=== PATIENT | male | born 1990 | race Caucasian/White ===

== ENCOUNTER 2024-12-25 15:49 | Emergency (ER) | payer BC, SELFPAY ==
[2024-12-25 15:50] VITALS: BMI 25.0
--- NOTE | 2024-12-25 15:54 | EKG_ITS ---
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
[2024-12-25 16:01] VITALS: BP 154/91; PULSE 69; RESP 18; TEMP 36.6; O2SAT 98
--- NOTE | 2024-12-25 16:02 | XR_ITS ---
Examination AP lateral chest 2 views Technique upright PA lateral chest 2 views Date and time: December 25, 2024, 1615 hours INDICATIONS: Chest pain beginning couple hours ago. FINDINGS: Normal heart size. Lungs are clear. The osseous structures are intact. IMPRESSION: No active disease.
--- NOTE | 2024-12-25 16:03 | EDRME_ITS ---
Rapid Medical Screening Exam COUNTS INCLUDE 234 BEDS AT THE [facility] Arrival date/time: 12/25/24 15:49 34-year-old male with no known medical history presents to the emergency room with a chief complaint of 8 out of 10 sternal chest pain that began this morning. Patient also states he is having bilateral arm tingling and shortness of breath. I have greeted and performed a focused initial assessment of this patient. A comprehensive ED assessment and evaluation of the patient, analysis of all test results, and completion of the medical decision making process will be conducted by additional ED providers. Chief Complaint: Chest Pain Vital signs: Vital Signs Temperature 97.9 F 12/25/24 16:01 Pulse Rate 69 12/25/24 16:01 Respiratory Rate 18 12/25/24 16:01 Blood Pressure 154/91 H 12/25/24 16:01 Pulse Oximetry (%) 98 12/25/24 16:01 Oxygen Delivery Method Room Air 12/25/24 16:01 Vital signs reviewed by provider: Yes
[2024-12-25 16:13] LABS: Basophils # (Auto) 0.0 Thou/mm3 (0.0-0.2); Basophils % (Auto) 0 % (0-2.5); Eosinophils # (Auto) 0.1 Thou/mm3 (0.0-0.5); Eosinophils % (Auto) 1 % (0-10); Hematocrit 43.4 % (41.0-53.0); Hemoglobin 14.7 g/dL (13.5-16.0); Immature Granulocytes Auto 0.02 Thou/mm3 (0.00-0.00); Lymphocytes # (Auto) 2.4 Thou/mm3 (1.0-4.8); Lymphocytes % (Auto) 29 % (10-50); Mean Corpuscular HGB Conc 33.9 g/dl (31.0-37.0); Mean Corpuscular Hemoglobin 30.6 pg (25.0-35.0); Mean Corpuscular Volume 90 fL (80-100); Monocytes # (Auto) 0.8 Thou/mm3 (0.0-0.8); Monocytes % (Auto) 10 % (0-12); Neutrophils # (Auto) 4.8 Thou/mm3 (1.8-7.7); Neutrophils % (Auto) 59 % (37-80); Nucleated Red Blood Cell # 0.00 Thou/mm3 (0.00-0.00); Nucleated Red Blood Cell % 0 /100 WBC (0); Platelet Count 309 Thou/mm3 (140-440); RDW Standard Deviation 39.2 fL (35.1-43.9); Red Blood Count 4.80 Miln/mm3 (4.50-5.90); White Blood Count 8.2 Thou/mm3 (3.8-10.6)
[2024-12-25 16:34] LABS: Alanine Aminotransferase 21 U/L (10-49); Albumin, Serum 4.8 gm/dL (3.5-5.0); Albumin/Globulin Ratio 1.9 (1.2-2.2); Alkaline Phosphatase 49 U/L (46-116); Anion Gap 8 (7-16); Aspartate Amino Transferase 25 U/L (0-34); B-Type Natriuretic Peptide < 20 pg/mL (0-100); BUN/Creatinine Ratio 9 Ratio (12-20); Bilirubin,Total 0.6 mg/dL (0.3-1.2); Blood Urea Nitrogen 11 mg/dL (9-23); Calcium 9.5 mg/dL (8.3-10.6); Calcium (Corrected) 9.5 mg/dL (8.5-10.1); Carbon Dioxide 29.6 mMol/L (20.0-31.0); Chloride 102 mMol/L (98-107); Creatinine (Component) 1.2 mg/dL (0.6-1.3); Estimated Creatinine Clearance 79.0 mL/min (>60); Globulin 2.5 gm/dL (2.3-3.5); Glucose 94 mg/dL (74-106); Osmolality,Calculated 278 (275-295); Potassium 4.3 mMol/L (3.4-5.1); Sodium 140 mMol/L (136-145); Total Protein 7.3 gm/dL (5.7-8.2); Troponin I < 0.020 ng/mL (0.0-0.045); eGFR > 60 See Note
[2024-12-25 16:56] LABS: Collection Type, Urine Clean Catch
[2024-12-25 17:04] LABS: Bilirubin,Urine Negative (Negative); Blood,Urine Negative (Negative); Clarity,Urine Clear (Clear/Hazy); Color,Urine Yellow (Lt Yel-Yel); Glucose, Urine Negative (Negative); Ketones,Urine Negative (Negative); Leukocyte Esterase,Urine Negative (Negative); Nitrite,Urine Negative (Negative); PH,Urine 6.0 (5.0-7.0); Protein,Urine Negative (Neg - Trace); RBC,Urine 3 /hpf (0-3); Specific Gravity,Urine 1.028 (1.001-1.035); Squamous Epithelial Cell,Urine 1 /hpf (0-5); Urobilinogen,Urine Negative mg/dL (0.0-1.0); WBC,Urine 1 /hpf (0-5)
[2024-12-25 17:21] LABS: Amphetamine/Methamp Scrn,U Negative (Negative); Barbiturate Screen,Urine Negative (Negative); Benzodiazepines Screen,Urine Negative (Negative); Benzoylecgonine Screen, Ur Negative (Negative); Fentanyl Screen,Urine Negative (Negative); Opiate Screen,Urine Negative (Negative); THC Screen,Urine Negative (Negative)
--- NOTE | 2024-12-25 17:34 | PD.EDCHEST ---
ED Chest Pain RME/HPI General Chief Complaint: Chest Pain Stated Complaint: CHEST PAIN/HANDS TINGLING SINCE AM; SOB Arrival date/time: 12/25/24 15:49 RME / HPI RME / HPI narrative: 12/25/24 15:49 34-year-old male with no known medical history presents to the emergency room with a chief complaint of 8 out of 10 sternal chest pain that began this morning. Patient also states he is having bilateral arm tingling and shortness of breath. I have greeted and performed a focused initial assessment of this patient. A comprehensive ED assessment and evaluation of the patient, analysis of all test results, and completion of the medical decision making process will be conducted by additional ED providers. DR. 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 Described as aching in sensation located most to substernal area without radiation, rating 8/10 in severity. Accompanied by his neck and upper back feeling tight, bilateral hand numbness, and feeling slightly short of breath. No aggravating or modifying factors reported. Denies any history of similar pain. Denies any recent injury or trauma. Denies fever, chills, sweating. Denies cough. Denies nausea, vomiting, diarrhea, constipation. Related Data Allergies Allergy/AdvReac Type Severity Reaction Status Date / Time No Known Allergies Allergy Verified 12/25/24 15:52 Review of Systems Review of Systems Systems Reviewed: All systems reviewed, normal except as documented Past Medical History Social History SMOKING STATUS: Never smoker ED Exam Narrative Physical exam: GENERAL APPEARANCE: alert and oriented x 4, well-developed, well-nourished, no acute distress HEENT: Normocephalic, atraumatic; pupils equal, round, reactive to light; EOMI; mucous membranes pink, moist; oropharynx clear NECK: Supple LUNGS: CTABL; no wheezes, no rales, no rhonchi HEART: Regular rate, regular rhythm; normal S1, S2; no murmurs ABDOMEN: non distended; normal BS; soft, no tenderness, no guarding, no rebound; no masses, no organomegaly, no hernia BACK: no CVA tenderness EXTREMITIES: atraumatic; no edema NEUROLOGIC: awake; alert and oriented x4; cranial nerves II-XII grossly intact; no focal sensory or motor deficits PSYCHIATRIC: appropriate mood and affect SKIN: warm, dry, normal color; no rashes Course Course Course Narrative: chest xray ordered to help determine etiology of chest pain. Quality Measures none Orders Category Date Time Status EKG (ED ONLY) *Do not use* NOW Care 12/25/24 15:54 Completed EKG (ED Only) Stat Exams 12/25/24 15:54 Draft XR chest 2V Stat Exams 12/25/24 16:02 Completed B-Type Natriuretic Peptide Stat Lab 12/25/24 16:07 Completed CBC Stat Lab 12/25/24 16:07 Completed Comprehensive Metabolic Panel Stat Lab 12/25/24 16:07 Completed Drug Screen,Urine Stat Lab 12/25/24 16:40 Completed Troponin I Stat Lab 12/25/24 16:07 Completed Troponin I Stat Lab 12/25/24 17:46 Ordered Urinalysis Stat Lab 12/25/24 16:40 Completed Vital Signs Vital signs: Vital Signs Temperature 97.9 F 12/25/24 16:01 Pulse Rate 69 12/25/24 16:01 Respiratory Rate 18 12/25/24 16:01 Blood Pressure 154/91 H 12/25/24 16:01 Pulse Oximetry (%) 98 12/25/24 16:01 Oxygen Delivery Method Room Air 12/25/24 16:01 Pulse ox is 98% on room air which is adequate. Chest Pain MDM Narrative MDM Narrative:: Saba Oakes am scribing for and in the presence of Dr. Jauregui. 34 year old male with no stated medical history presents to the ED for evaluation of substernal chest pain beginning 3 hours CUT OUT MARKER. Described as aching in sensation, rating 8/10 in severity. Accompanied by neck and upper back feeling tight, bilateral hand numbness, and feeling slightly short of breath. Denies any known cardiac history or similar history. Denies any recent injury or trauma. EKG today shows no acute ischemia, no STEMI. Labs are unremarkable, initial troponin is negative. Given the chest pain began only 3 hours prior to arrival, a second troponin was ordered. Patient data External records reviewed:: None (Patient has no previous ED visits for review. ) Clinical information provided by:: patient Social determinants that could affect healthcare access:: none Patient has the following chronic illnesses:: None How is presenting disease/condition affected by chronic disease/condition?: no chronic disease Evaluation data The following diagnostics were reviewed and interpreted by me:: lab results, radiology exam(s) and EKG tracing(s) (12/25/2024 @ 15:57. Sinus rhythm, rate 62, normal axis, normal intervals, no acute ischemic changes. ) Lab and/or radiology exams considered but not ordered:: None Interpretation Summary: Ordering Physician: Jasbir Raymond Date of Service: 12/25/24 Procedure(s): XR chest 2V Accession Number(s): [id number] cc: Jasbir Raymond; Aurelio Delcid MD; NO PRIMARY/FAMILY,PHYSICIAN~ Examination AP lateral chest 2 views Technique upright PA lateral chest 2 views Date and time: December 25, 2024, 1615 hours INDICATIONS: Chest pain beginning couple hours ago. FINDINGS: Normal heart size. Lungs are clear. The osseous structures are intact. IMPRESSION: No active disease. Dictated By: Aurelio Declid MD Signed By: <Electronically signed by Aurelio Delcid MD in OV> 12/25/24 1639 Medications / Prescriptions Medications or Prescriptions considered but not ordered:: None Medication administrations:: None Consultations Consultation(s) initiated? (list below): No Diagnosis Chest Pain Differential Diagnosis: atypical chest pain, st elevation myocardial infarction, costochondritis and chest pain Most likely diagnosis given after review of the tests above:: Chest pain Paresthesia Admission Indicated Admission indicated?: not indicated Admission Request Was there a request for admission?: No Disposition Plan Disposition Plan: Discharge Discharge Attestation Discharge Attestation: The patient and all family members were given an opportunity to ask questions and understood the discharge instructions. Discharge instructions specifically effects, indications for sooner follow up or return to the emergency department, and the expected course of current diagnosis. Patient condition: Stable Discharge Plan Plan Patient Disposition: HOME (Self Care) Prescriptions/Referrals Referrals: No Primary/Family,Physician [Primary Care Provider] - In 1 week Problem List Clinical Impression: Chest pain, Paresthesia Patient/Caregiver Discharge Instructions Education Materials: ED Chest Pain, Uncertain Cause, ED Paraesthesias Print Language: Indonesian Stand Alone Forms: Rahel Award Info., Patient Portal Info Letter
[2024-12-25 19:12] LABS: Troponin I < 0.020 ng/mL (0.0-0.045)
[2024-12-25 19:28] VITALS: BP 141/86; PULSE 71; RESP 18; TEMP 36.7; O2SAT 99
== END 2024-12-25 19:35 | disposition home or self-care (01) ==
PROVIDERS: Nurse Practitioner Family; Emergency Provider Emergency Medicine
DX: R07.2 Precordial pain (principal); R20.2 Paresthesia of skin; R94.31 Abnormal electrocardiogram [ECG] [EKG]
CPT/HCPCS: 36415; 71046; 80053; 80307; 81001; 83880; 84484; 85025; 93005; 99283